=== PATIENT | female | born 1960 | race Caucasian/White ===

== ENCOUNTER 2020-01-02 16:22 | Emergency (ER) | payer MEDICAID ==
[~2020-01-02] VITALS: Ht 162.6 cm; Wt 70.8 kg
[~2020-01-02 16:22] MED LIST: LEVO50TA5 PO
[2020-01-02 16:25] VITALS: BP 132/79
--- NOTE | 2020-01-02 16:41 | NUR ---
RIGHT ERIKA FINDER LACERATION WITH NAIL ENVOLMENT. / KITCHEN KNIFE. HEMOSTATSIS OBTAINED NOCTURNIST.
[2020-01-02] MEDS ORDERED: DIPH,PERTUSS(ACELL),TET VAC/PF 0.5 ML IM-VACC ONE ×2 (17:00→17:36)
[2020-01-02] MEDS ORDERED: LIDOCAINE-MPF 1%, 5ML INFIL ONE (17:00)
[2020-01-02] MEDS ORDERED: LIDOCAINE-MPF 1%, 5ML ONE ×2 (17:06→17:48)
[2020-01-02] MEDS ORDERED: NEOSPORIN OINT. PKT 1 PACKET ONE (18:15)
== END 2020-01-02 18:24 | disposition home or self-care (01) ==
LOC: ED 17:09
DX: S61.310A Laceration without foreign body of right index finger with damage to nail, initial encounter (principal); X58.XXXA Exposure to other specified factors, initial encounter; Y93.89 Activity, other specified; Y92.098 Other place in other non-institutional residence as the place of occurrence of the external cause; Y99.8 Other external cause status
CPT/HCPCS: 12041; 90471; 90715; 99284

== ENCOUNTER 2020-01-12 10:34 | Emergency (ER) | payer BC, MEDICAID ==
[~2020-01-12] VITALS: Ht 162.6 cm; Wt 71.0 kg
[2020-01-12 10:53] VITALS: BP 122/69
== END 2020-01-12 11:27 | disposition home or self-care (01) ==
LOC: ED 11:08
DX: S61.210D Laceration without foreign body of right index finger without damage to nail, subsequent encounter (principal); Z48.02 Encounter for removal of sutures; X58.XXXD Exposure to other specified factors, subsequent encounter
CPT/HCPCS: 99282

== ENCOUNTER 2020-02-18 10:56 | Emergency (ER) | payer MEDICAID ==
[~2020-02-18] VITALS: Ht 162.6 cm; Wt 72.2 kg
[2020-02-18 12:29] LABS: BASOPHILS % (AUTO) 1 % (0-1); EOSINOPHILS % (AUTO) 3 % (1-7); LYMPHOCYTES % (AUTO) 30 % (22-44); MEAN CORPUSCULAR HEMOGLOBIN 30.8 pg (27.0-34.8); MEAN CORPUSCULAR HGB CONC 33.9 g/dL (32.4-35.8); MONOCYTES % (AUTO) 10 % (2-9); NEUTROPHILS % (AUTO) 56 % (42-75); PLATELET COUNT 278 x10^3/uL (130-400); RED BLOOD COUNT 4.72 x10^6/uL (3.82-5.3)
[2020-02-18 12:37] LABS: MD NO
[2020-02-18 12:39] LABS: ALBUMIN 3.8 g/dL (3.4-5.0); ANION GAP 3 mmol/L (5-15); CALCIUM 8.7 mg/dL (8.5-10.1); CHLORIDE 108 mmol/L (98-107); CREATININE 0.99 mg/dL (0.55-1.02)
[2020-02-18 12:43] LABS: TROPONIN I < 0.015 ng/mL (0.000-0.045)
--- NOTE | 2020-02-18 13:32 | NUR ---
CENTRAL SUPPLY AIDE: PT AMBULATORY TO ROOM FROM LOBBY
[2020-02-18 14:12] VITALS: BP 126/93
--- NOTE | 2020-02-18 14:12 | NUR ---
SWABBED FOR COVID.
== END 2020-02-18 14:16 | disposition home or self-care (01) ==
LOC: ED 13:57
DX: H83.03 Labyrinthitis, bilateral (principal); Z20.828 Contact with and (suspected) exposure to other viral communicable diseases; H65.03 Acute serous otitis media, bilateral; R06.00 Dyspnea, unspecified; R94.31 Abnormal electrocardiogram [ECG] [EKG]; R42 Dizziness and giddiness; Z87.891 Personal history of nicotine dependence
CPT/HCPCS: 36415; 71045; 80048; 82040; 83880; 84484; 85025; 87635; 93005; 99285